=== PATIENT | female | born 1975 | race Hispanic/Latino ===

== ENCOUNTER 2018-09-29 06:59 | Inpatient (IN) | payer OTHER ==
[2018-09-29] MEDS ORDERED: DUONEB *Not for PRN Use IH ONE ×2 (07:12→09:06)
[2018-09-29] MEDS ORDERED: SOLU-Medrol IV ONE (07:13)
[2018-09-29] MEDS ORDERED: MAGNESIUM SULFATE 2GM/50ML 2 GM/50 ML BAG IV ONE (07:13)
[2018-09-29 07:29] LABS: Basophils % (Auto) 0.4 % (0.0-1.8); Eosinophils # (Auto) 0.6 K/mm3 (0.0-0.4); Eosinophils % (Auto) 4.7 % (0.0-4.3); Hematocrit 36.6 % (30.3-42.9); Hemoglobin 12.5 gm/dl (10.1-14.3); Lymphocytes # (Auto) 1.8 K/mm3 (1.2-5.4); Lymphocytes % (Auto) 14.2 % (13.4-35.0); Mean Corpuscular HGB Conc 34 % (30-34); Mean Corpuscular Volume 89 fl (79-97); Monocytes # (Auto) 0.8 K/mm3 (0.0-0.8); Monocytes % (Auto) 6.5 % (0.0-7.3); Platelet Count 257 K/mm3 (140-440); Red Blood Count 4.13 M/mm3 (3.65-5.03)
[2018-09-29 07:40] LABS: INR 1.04 (0.87-1.13)
[2018-09-29 07:41] LABS: Partial Thromboplastin Time 31.5 Sec. (24.2-36.6)
--- NOTE | 2018-09-29 07:47 | XRay Report ---
CHEST 1 VIEW INDICATION: ruel. COMPARISON: None FINDINGS: Support devices: None. Heart: Within normal limits. Lungs/Pleura: No acute air space or interstitial disease. Additional findings: None. IMPRESSION: 1. No acute findings. Signer Name: Preston Lucas MD Signed: 09/29/2018 7:43 AM Workstation Name: [id number]
[2018-09-29 07:49] LABS: BUN/Creatinine Ratio 23; Blood Urea Nitrogen 9 mg/dL (7-17); Calcium 8.6 mg/dL (8.4-10.2); Hemolysis Index 8
[2018-09-29 07:52] LABS: Alanine Aminotransferase 11 units/L (7-56); Albumin 3.6 g/dL (3.9-5)
[2018-09-29 07:53] LABS: Bilirubin,Direct < 0.2 mg/dL (0-0.2); Creatine Kinase MB < 1.0 ng/mL (0.0-4.0)
[2018-09-29] MEDS ORDERED: K-DUR PO ONE (08:40)
[2018-09-29] MEDS ORDERED: MORPHINE IV ONE (09:32)
[2018-09-29] MEDS ORDERED: ZOFRAN IV ONE (09:32)
--- NOTE | 2018-09-29 09:34 | Emergency Department Report ---
ED Shortness of Breath HPI - General Chief Complaint: Dyspnea/Respdistress Stated Complaint: SERVANDO Time Seen by Provider: 09/29/18 07:06 Source: patient, EMS Mode of arrival: Stretcher Limitations: No Limitations - History of Present Illness Initial Comments: 43-year-old female nicotine dependence still smoking with COPD. She was transported by EMS and did not require BiPAP. They could not establish an IV so they did not give her Solu-Medrol or magnesium. Patient states that she has been coughing for the last few days. She has experienced chest pain along with her wheezing. She describes it as tightness and concur with her wheezing. Does not radiate. She denies history of coronary artery disease. She has had prior admissions for COPD exacerbation but no intubations. MD Complaint: shortness of breath ((wheezing and Prevacid) -: days(s) Radiation: other (none) Severity: mild, moderate Quality: other (tightness associated with wheezing) Consistency: intermittent Improves With: nothing Worsens With: nothing Known History Of: COPD Context: other (persistent smoking) Associated Symptoms: chest pain - Related Data Allergies Allergy/AdvReac Type Severity Reaction Status Date / Time No Known Allergies Allergy Verified 09/29/18 07:25 ED Review of Systems ROS: Stated complaint: SERVANDO Other details as noted in HPI Constitutional: denies: chills, fever Eyes: denies: eye pain, eye discharge, vision change ENT: denies: ear pain, throat pain Respiratory: cough (nonproductive), shortness of breath, wheezing Cardiovascular: denies: chest pain, palpitations Endocrine: no symptoms reported Gastrointestinal: denies: abdominal pain, nausea, diarrhea Genitourinary: denies: urgency, dysuria, discharge Musculoskeletal: denies: back pain, joint swelling, arthralgia Skin: denies: rash, lesions Neurological: denies: headache, weakness, paresthesias Psychiatric: denies: anxiety, depression Hematological/Lymphatic: denies: easy bleeding, easy bruising ED Past Medical Hx - Past Medical History Previous Medical History?: Yes Hx CVA: Yes Hx Seizures: Yes Hx Asthma: Yes - Surgical History Past Surgical History?: No - Social History Smoking Status: Former Smoker Substance Use Type: None Other Social History: No recent significant travel ED Physical Exam - General Limitations: No Limitations General appearance: alert, in no apparent distress - Head Head exam: Present: atraumatic, normocephalic - Eye Eye exam: Present: normal appearance. Absent: scleral icterus - ENT ENT exam: Present: mucous membranes moist - Neck Neck exam: Present: normal inspection. Absent: tenderness, meningismus - Respiratory Respiratory exam: Present: wheezes, other (increased work of breathing). Absent: normal lung sounds bilaterally, respiratory distress - Cardiovascular Cardiovascular Exam: Present: regular rate, normal rhythm. Absent: systolic murmur, diastolic murmur, rubs, gallop - GI/Abdominal GI/Abdominal exam: Present: soft, normal bowel sounds. Absent: distended, tenderness, guarding, rebound, rigid - Extremities Exam Extremities exam: Present: normal inspection - Back Exam Back exam: Present: normal inspection - Neurological Exam Neurological exam: Present: alert, oriented X3, CN II-XII intact. Absent: motor sensory deficit - Psychiatric Psychiatric exam: Present: normal affect, normal mood - Skin Skin exam: Present: warm, dry, intact, normal color. Absent: rash ED Course Vital Signs 09/29/18 09/29/18 09/29/18 07:20 07:25 07:40 Temperature 98.6 F Pulse Rate 121 H Pulse Rate [ 110 H Bilateral] Respiratory 20 20 Rate Respiratory 16 Rate [Bilateral ] Blood Pressure 124/84 Blood Pressure [Left] O2 Sat by Pulse 97 97 Oximetry 09/29/18 09/29/18 08:34 09:20 Temperature Pulse Rate 111 H Pulse Rate [ 108 H Bilateral] Respiratory 22 Rate Respiratory 18 Rate [Bilateral ] Blood Pressure Blood Pressure 124/80 [Left] O2 Sat by Pulse 95 Oximetry - Reevaluation(s) Reevaluation #1: Patient complained periodically of chest pain to the nurse. On my exam she did not refer chest pain but she did have persistent wheezing. Her chest pain workup is expanded. She has a heart score of 1 were 0. She will be given aspirin. She will be admitted for further treatment of her COPD exacerbation and chest pain. 09/29/18 09:33 ED Medical Decision Making - Lab Data Result diagrams: 09/29/18 07:18 09/29/18 01:32 Laboratory Results - last 24 hr 09/29/18 09/29/18 09/29/18 01:32 07:18 07:18 WBC 12.8 H RBC 4.13 Hgb 12.5 Hct 36.6 MCV 89 MCH 30 MCHC 34 RDW 14.0 Plt Count 257 Lymph % (Auto) 14.2 [place] % (Auto) 6.5 Eos % (Auto) 4.7 H Baso % (Auto) 0.4 Lymph # 1.8 [place] # 0.8 Eos # 0.6 H Baso # 0.0 Seg Neutrophils % 74.2 H Seg Neutrophils # 9.5 H PT 13.3 INR 1.04 APTT 31.5 Sodium 138 Potassium 3.0 L Chloride 102.9 Carbon Dioxide 24 Anion Gap 14 BUN 9 Creatinine 0.4 L Estimated GFR > 60 BUN/Creatinine Ratio 23 Glucose 131 H Calcium 8.6 Total Bilirubin Direct Bilirubin Indirect Bilirubin AST ALT Alkaline Phosphatase Total Creatine Kinase CK-MB (CK-2) CK-MB (CK-2) Rel Index Troponin T NT-Pro-B Natriuret Pep Total Protein Albumin Albumin/Globulin Ratio 09/29/18 07:18 WBC RBC Hgb Hct MCV MCH MCHC RDW Plt Count Lymph % (Auto) [place] % (Auto) Eos % (Auto) Baso % (Auto) Lymph # [place] # Eos # Baso # Seg Neutrophils % Seg Neutrophils # PT INR APTT Sodium Potassium Chloride Carbon Dioxide Anion Gap BUN Creatinine Estimated GFR BUN/Creatinine Ratio Glucose Calcium Total Bilirubin 0.40 Direct Bilirubin < 0.2 Indirect Bilirubin 0.2 AST 14 ALT 11 Alkaline Phosphatase 54 Total Creatine Kinase 31 CK-MB (CK-2) < 1.0 CK-MB (CK-2) Rel Index 3.2 Troponin T < 0.010 NT-Pro-B Natriuret Pep 81.79 Total Protein 6.6 Albumin 3.6 L Albumin/Globulin Ratio 1.2 - EKG Data EKG shows normal: sinus rhythm, axis, intervals, QRS complexes, ST-T waves Rate: normal - EKG Data Interpretation: nonspecific ST-T wave areli - Radiology Data Radiology results: report reviewed, image reviewed (no acute process) Critical care attestation.: If time is entered above; I have spent that time in minutes in the direct care of this critically ill patient, excluding procedure time. ED Disposition Clinical Impression: COPD exacerbation, Hypokalemia Chest pain Qualifiers: Chest pain type: unspecified Qualified Code(s): R07.9 - Chest pain, unspecified Disposition: OP ADMIT IP TO THIS HOSP Is pt being admited?: Yes Does the pt Need Aspirin: Yes Condition: Stable Instructions: Chronic Obstructive Pulmonary Disease (ED), Chest Pain (ED) Time of Disposition: 09:35
[2018-09-29] MEDS: ASPIRIN PO SCH (09:47)
--- NOTE | 2018-09-29 10:56 | History and Physical Report ---
History of Present Illness Date of examination: 09/29/18 Date of admission: 09/29/18 09:36 Chief complaint: shortness of breath History of present illness: Patient is a 43-year-old female with past medical history of asthma since childhood, remote history of tobacco use she quit 2 months ago. Also associated history of SLE and seizure disorder. Who presents to the hospital complaining of shortness of breath that has been ongoing for the last few days. The patient reports that he started initially with cough and nonproductive and proceeded to tightness in her chest which causes with wheezing. She denies any radiation of the chest discomfort which resulted 3/10 in intensity. She states that her shortness of breath got rather worse prompted her call To call EMS. She denies any prior history of intubations but she's been admitted to the hospital before for asthma-induced condition. Past History Past Medical History: seizures, other (sle) Past Surgical History: No surgical history Social history: smoking (quit 2 months ago) Family history: no significant family history Medications and Allergies Allergies Allergy/AdvReac Type Severity Reaction Status Date / Time acetaminophen [From Vicodin] Allergy Unknown Verified 09/29/18 09:49 aspirin Allergy Hives Verified 09/29/18 09:49 codeine Allergy Unknown Verified 09/29/18 09:49 hydrocodone [From Vicodin] Allergy Unknown Verified 09/29/18 09:49 latex Allergy Unknown Verified 09/29/18 09:49 Penicillins Allergy Unknown Verified 09/29/18 09:49 Active Meds: Active Medications Aspirin (Aspirin) 325 mg PO QDAY TARI Last Admin: 09/29/18 09:47 Dose: Not Given Documented by: Review of Systems All systems: negative Cardiovascular: chest pain, shortness of breath Respiratory: cough, shortness of breath, dyspnea on exertion, respiratory infections Exam - Physical Exam Narrative exam: VITAL SIGNS: Reviewed. GENERAL: The patient appears normally developed, Vital signs as documented. HEAD: No signs of head trauma. EYES: Pupils are equal. Extraocular motions intact. EARS: Hearing grossly intact. MOUTH: Oropharynx is normal. NECK: No adenopathy, no JVD. CHEST: Chest with wheezing sounds bilaterally. No wheezes, rales, or rhonchi. CARDIAC: Regular rate and rhythm. S1 and S2, without murmurs, gallops, or rub s. VASCULAR: No Edema. Peripheral pulses normal and equal in all extremities. ABDOMEN: Soft, non tender and non distended. No rebound or guarding, and no masses palpated. Bowel Sounds normal. MUSCULOSKELETAL: Good range of motion of all major joints. Extremities without clubbing, cyanosis or edema. NEUROLOGIC EXAM: Alert and oriented x 3 No focal sensory or strength deficits. Speech normal. Follows commands. PSYCHIATRIC: Mood normal. SKIN: detail exam as documented in skin assessment - Constitutional Vitals: Temp Pulse Resp BP Pulse Ox 98.8 F 106 H 20 121/69 95 09/29/18 10:31 09/29/18 10:31 09/29/18 10:31 09/29/18 10:31 09/29/18 10:31 Results - Labs CBC & Chem 7: 09/29/18 07:18 09/29/18 01:32 Labs: Laboratory Last Values WBC 12.8 K/mm3 (4.5-11.0) H 09/29/18 07:18 RBC 4.13 M/mm3 (3.65-5.03) 09/29/18 07:18 Hgb 12.5 gm/dl (10.1-14.3) 09/29/18 07:18 Hct 36.6 % (30.3-42.9) 09/29/18 07:18 MCV 89 fl (79-97) 09/29/18 07:18 MCH 30 pg (28-32) 09/29/18 07:18 MCHC 34 % (30-34) 09/29/18 07:18 RDW 14.0 % (13.2-15.2) 09/29/18 07:18 Plt Count 257 K/mm3 (140-440) 09/29/18 07:18 Lymph % (Auto) 14.2 % (13.4-35.0) 09/29/18 07:18 [place] % (Auto) 6.5 % (0.0-7.3) 09/29/18 07:18 Eos % (Auto) 4.7 % (0.0-4.3) H 09/29/18 07:18 Baso % (Auto) 0.4 % (0.0-1.8) 09/29/18 07:18 Lymph # 1.8 K/mm3 (1.2-5.4) 09/29/18 07:18 [place] # 0.8 K/mm3 (0.0-0.8) 09/29/18 07:18 Eos # 0.6 K/mm3 (0.0-0.4) H 09/29/18 07:18 Baso # 0.0 K/mm3 (0.0-0.1) 09/29/18 07:18 Seg Neutrophils % 74.2 % (40.0-70.0) H 09/29/18 07:18 Seg Neutrophils # 9.5 K/mm3 (1.8-7.7) H 09/29/18 07:18 PT 13.3 Sec. (12.2-14.9) 09/29/18 07:18 INR 1.04 (0.87-1.13) 09/29/18 07:18 APTT 31.5 Sec. (24.2-36.6) 09/29/18 07:18 199.49 ng/mlDDU (0-234) 09/29/18 07:20 Sodium 138 mmol/L (137-145) 09/29/18 01:32 Potassium 3.0 mmol/L (3.6-5.0) L 09/29/18 01:32 Chloride 102.9 mmol/L (98-107) 09/29/18 01:32 Carbon Dioxide 24 mmol/L (22-30) 09/29/18 01:32 14 mmol/L 09/29/18 01:32 BUN 9 mg/dL (7-17) 09/29/18 01:32 0.4 mg/dL (0.7-1.2) L 09/29/18 01:32 Estimated GFR > 60 ml/min 09/29/18 01:32 23 % 09/29/18 01:32 Glucose 131 mg/dL (65-100) H 09/29/18 01:32 Calcium 8.6 mg/dL (8.4-10.2) 09/29/18 01:32 0.40 mg/dL (0.1-1.2) 09/29/18 07:18 < 0.2 mg/dL (0-0.2) 09/29/18 07:18 0.2 mg/dL 09/29/18 07:18 AST 14 units/L (5-40) 08/11/19 07:18 ALT 11 units/L (7-56) 09/29/18 07:18 54 units/L (35-129) 09/29/18 07:18 31 units/L (30-135) 09/29/18 07:18 CK-MB (CK-2) < 1.0 ng/mL (0.0-4.0) 09/29/18 07:18 CK-MB (CK-2) Rel Index 3.2 (0-4) 09/29/18 07:18 < 0.010 ng/mL (0.00-0.029) 09/29/18 09:35 NT-Pro-B Natriuret Pep 81.79 pg/mL (0-450) 09/29/18 07:18 6.6 g/dL (6.3-8.2) 09/29/18 07:18 3.6 g/dL (3.9-5) L 09/29/18 07:18 1.2 % 09/29/18 07:18 Assessment and Plan Assessment and plan: Patient is a 43-year-old female with past medical history of asthma since childhood, remote history of tobacco use she quit 2 months ago. Also associated history of SLE and seizure disorder. Who presents to the hospital complaining of shortness of breath that has been ongoing for the last few days. The patient reports that he started initially with cough and nonproductive and proceeded to tightness in her chest which causes with wheezing. She denies any radiation of the chest discomfort which resulted 3/10 in intensity. She states that her shortness of breath got rather worse prompted her call To call EMS. She denies any prior history of intubations but she's been admitted to the hospital before for asthma-induced condition. CXR: No acute pathology Acute Respiratory failure secondary to Asthma Asthma exacerbation Tobacco use disorder seizure disorder SLE Hypokalemia PLAN Admit to medicine steroids, Oxygen and wean as tolerated Abx Replace K Seizure precaution Nebs Obtain home med list for reconciliation, discussed with the nurse DVT/GI Prophylaxis Advance Directives: Yes Plan of care discussed with patient/family: Yes
[2018-09-29] MEDS ORDERED: SODIUM CHLORIDE FLUSH SYRINGE 10 ML IV PRN (11:06)
[2018-09-29] MEDS ORDERED: PROVENTIL IH PRN (11:06)
[2018-09-29] MEDS ORDERED: ZOFRAN IV PRN (11:06)
[2018-09-29] MEDS: DUONEB *Not for PRN Use IH SCH ×3 (14:43→19:33)
[2018-09-29] MEDS: ZITHROMAX 500 MG in NACL 0.9% 250ML 250 ML IV SCH (15:40)
[2018-09-29] MEDS: TYLENOL PO PRN (18:09)
[2018-09-29] MEDS: SOLU-Medrol IV SCH ×2 (18:09→23:29)
[2018-09-29] MEDS: BROVANA NEBU IH SCH (19:33)
[2018-09-29] MEDS: PULMICORT IH SCH (19:33)
[2018-09-29] MEDS: SODIUM CHLORIDE FLUSH SYRINGE 10 ML IV SCH (23:29)
[2018-09-30] MEDS: DUONEB *Not for PRN Use IH SCH ×4 (03:18→20:45)
[2018-09-30 05:17] LABS: Hematocrit 36.6 % (30.3-42.9); Hemoglobin 12.6 gm/dl (10.1-14.3); Mean Corpuscular HGB Conc 35 % (30-34); Mean Corpuscular Volume 89 fl (79-97); Platelet Count 303 K/mm3 (140-440); Red Blood Count 4.13 M/mm3 (3.65-5.03)
[2018-09-30 05:34] LABS: BUN/Creatinine Ratio 20; Blood Urea Nitrogen 8 mg/dL (7-17); Calcium 9.1 mg/dL (8.4-10.2); Hemolysis Index 4
[2018-09-30 07:15] LABS: Basophils % (Manual) 0 % (0.0-1.8); Eosinophils % (Manual) 0 % (0.0-4.3); Platelet Estimate Consistent w Auto; RBC Morphology Normal; Total Cells Counted 100
[2018-09-30] MEDS: BROVANA NEBU IH SCH ×2 (07:51→20:45)
[2018-09-30] MEDS: PULMICORT IH SCH ×2 (07:51→20:45)
[2018-09-30] MEDS: SOLU-Medrol IV SCH ×2 (08:20→15:53)
[2018-09-30] MEDS: ASPIRIN PO SCH (09:02)
[2018-09-30] MEDS: SODIUM CHLORIDE FLUSH SYRINGE 10 ML IV SCH ×2 (09:03→22:57)
[2018-09-30] MEDS: KEPPRA PO SCH ×2 (12:33→22:57)
[2018-09-30] MEDS: ZITHROMAX 500 MG in NACL 0.9% 250ML 250 ML IV SCH (13:15)
[2018-09-30] MEDS ORDERED: NACL 0.9% 1000 ML 1,000 ML IV ONE (14:12)
--- NOTE | 2018-09-30 16:58 | Progress Note ---
Assessment and Plan Assessment and plan: Patient is a 43-year-old female with past medical history of asthma since childhood, remote history of tobacco use she quit 2 months ago. Also associated history of SLE and seizure disorder. Who presents to the hospital complaining of shortness of breath that has been ongoing for the last few days. The patient reports that he started initially with cough and nonproductive and proceeded to tightness in her chest which causes with wheezing. She denies any radiation of the chest discomfort which resulted 3/10 in intensity. She states that her shortness of breath got rather worse prompted her call To call EMS. She denies any prior history of intubations but she's been admitted to the hospital before for asthma-induced condition. CXR: No acute pathology Acute Respiratory failure secondary to Asthma Asthma exacerbation Sinus tachycardia on EKG Tobacco use disorder seizure disorder SLE Hypokalemia PLAN Supportive care Resume seizure meds Continue IV steroids. Obtain Pulmonary consult Will need outpatient work up to eval for COPD Oxygen and wean as tolerated Abx Replace K Seizure precaution Nebs DVT/GI Prophylaxis Plan discussed with patient and Nurse at bedside History Interval history: Patient seen and examined today, remains lethargic, wheezing persist. Hospitalist Physical - Physical exam Narrative exam: VITAL SIGNS: Reviewed. GENERAL: The patient appears normally developed, appears in mild distress. Vital signs as documented. HEAD: No signs of head trauma. EYES: Pupils are equal. Extraocular motions intact. EARS: Hearing grossly intact. MOUTH: Oropharynx is normal. NECK: No adenopathy, no JVD. CHEST: Chest with wheezing sounds bilaterally. No wheezes, rales, or rhonchi. CARDIAC: Regular rate and rhythm. S1 and S2, without murmurs, gallops, or rubs. VASCULAR: No Edema. Peripheral pulses normal and equal in all extremities. ABDOMEN: Soft, non tender and non distended. No rebound or guarding, and no masses palpated. Bowel Sounds normal. MUSCULOSKELETAL: Good range of motion of all major joints. Extremities without clubbing, cyanosis or edema. NEUROLOGIC EXAM: Alert and oriented x 3 No focal sensory or strength deficit s. Speech normal. Follows commands. PSYCHIATRIC: Mood normal. SKIN: detail exam as documented in skin assessment - Constitutional Vitals: Temp Pulse Resp BP Pulse Ox 98.3 F 130 H 22 116/70 95 09/30/18 12:09 09/30/18 13:41 09/30/18 13:41 09/30/18 12:09 09/30/18 12:09 Results - Labs CBC & Chem 7: 09/30/18 04:56 09/30/18 04:56 Labs: Laboratory Last Values WBC 17.5 K/mm3 (4.5-11.0) H 09/30/18 04:56 RBC 4.13 M/mm3 (3.65-5.03) 09/30/18 04:56 Hgb 12.6 gm/dl (10.1-14.3) 09/30/18 04:56 Hct 36.6 % (30.3-42.9) 09/30/18 04:56 MCV 89 fl (79-97) 09/30/18 04:56 MCH 31 pg (28-32) 09/30/18 04:56 MCHC 35 % (30-34) H 09/30/18 04:56 RDW 14.0 % (13.2-15.2) 09/30/18 04:56 Plt Count 303 K/mm3 (140-440) 09/30/18 04:56 Lymph % (Auto) 14.2 % (13.4-35.0) 09/29/18 07:18 [place] % (Auto) 6.5 % (0.0-7.3) 09/29/18 07:18 Eos % (Auto) 4.7 % (0.0-4.3) H 09/29/18 07:18 Baso % (Auto) 0.4 % (0.0-1.8) 09/29/18 07:18 Lymph # 1.8 K/mm3 (1.2-5.4) 09/29/18 07:18 [place] # 0.8 K/mm3 (0.0-0.8) 09/29/18 07:18 Eos # 0.6 K/mm3 (0.0-0.4) H 09/29/18 07:18 Baso # 0.0 K/mm3 (0.0-0.1) 09/29/18 07:18 Add Manual Diff Complete 09/30/18 04:56 Total Counted 100 09/30/18 04:56 Seg Neutrophils % Biometrics Instructor 09/30/18 04:56 Seg Neuts % (Manual) 96.0 % (40.0-70.0) H 09/30/18 04:56 0 % 09/30/18 04:56 3.0 % (13.4-35.0) L 09/30/18 04:56 Reactive Lymphs % (Man) 0 % 09/30/18 04:56 1.0 % (0.0-7.3) 09/30/18 04:56 0 % (0.0-4.3) 09/30/18 04:56 0 % (0.0-1.8) 09/30/18 04:56 0 % 09/30/18 04:56 0 % 09/30/18 04:56 0 % 09/30/18 04:56 0 % 09/30/18 04:56 Nucleated RBC % Not Reportable 09/30/18 04:56 Seg Neutrophils # 9.5 K/mm3 (1.8-7.7) H 09/29/18 07:18 Seg Neutrophils # Man 16.8 K/mm3 (1.8-7.7) H 09/30/18 04:56 Band Neutrophils # 0.0 K/mm3 09/30/18 04:56 0.5 K/mm3 (1.2-5.4) L 09/30/18 04:56 Abs React Lymphs (Man) 0.0 K/mm3 09/30/18 04:56 0.2 K/mm3 (0.0-0.8) 09/30/18 04:56 0.0 K/mm3 (0.0-0.4) 09/30/18 04:56 0.0 K/mm3 (0.0-0.1) 09/30/18 04:56 0.0 K/mm3 09/30/18 04:56 0.0 K/mm3 09/30/18 04:56 0.0 K/mm3 09/30/18 04:56 Blast Cells # 0.0 K/mm3 09/30/18 04:56 WBC Morphology Not Reportable 09/30/18 04:56 Hypersegmented Neuts Not Reportable 09/30/18 04:56 Hyposegmented Neuts Not Reportable 09/30/18 04:56 Hypogranular Neuts Not Reportable 09/30/18 04:56 Not Reportable 09/30/18 04:56 Not Reportable 09/30/18 04:56 Not Reportable 09/30/18 04:56 Not Reportable 09/30/18 04:56 Not Reportable 09/30/18 04:56 Not Reportable 09/30/18 04:56 Consistent w auto 09/30/18 04:56 Not Reportable 09/30/18 04:56 Plt Clumps, EDTA Not Reportable 09/30/18 04:56 Not Reportable 09/30/18 04:56 Not Reportable 09/30/18 04:56 Not Reportable 09/30/18 04:56 Plt Morphology Comment Not Reportable 09/30/18 04:56 RBC Morphology Normal 09/30/18 04:56 Dimorphic RBCs Not Reportable 09/30/18 04:56 Not Reportable 09/30/18 04:56 Not Reportable 09/30/18 04:56 Not Reportable 09/30/18 04:56 Not Reportable 09/30/18 04:56 Not Reportable 09/30/18 04:56 Not Reportable 09/30/18 04:56 Not Reportable 09/30/18 04:56 Not Reportable 09/30/18 04:56 Not Reportable 09/30/18 04:56 Not Reportable 09/30/18 04:56 Not Reportable 09/30/18 04:56 Not Reportable 09/30/18 04:56 Not Reportable 09/30/18 04:56 Not Reportable 09/30/18 04:56 Not Reportable 09/30/18 04:56 Not Reportable 09/30/18 04:56 Not Reportable 09/30/18 04:56 Not Reportable 09/30/18 04:56 Not Reportable 09/30/18 04:56 Acanthocytes (Spur) Not Reportable 09/30/18 04:56 Rouleaux Not Reportable 09/30/18 04:56 Not Reportable 09/30/18 04:56 Not Reportable 09/30/18 04:56 Not Reportable 09/30/18 04:56 Not Reportable 09/30/18 04:56 Hem Pathologist Commnt No 09/30/18 04:56 PT 13.3 Sec. (12.2-14.9) 09/29/18 07:18 INR 1.04 (0.87-1.13) 09/29/18 07:18 APTT 31.5 Sec. (24.2-36.6) 09/29/18 07:18 199.49 ng/mlDDU (0-234) 09/29/18 07:20 Sodium 140 mmol/L (137-145) 09/30/18 04:56 Potassium 4.3 mmol/L (3.6-5.0) D 09/30/18 04:56 Chloride 103.6 mmol/L (98-107) 09/30/18 04:56 Carbon Dioxide 25 mmol/L (22-30) 09/30/18 04:56 16 mmol/L 09/30/18 04:56 BUN 8 mg/dL (7-17) 09/30/18 04:56 0.4 mg/dL (0.7-1.2) L 09/30/18 04:56 Estimated GFR > 60 ml/min 09/30/18 04:56 20 % 09/30/18 04:56 Glucose 200 mg/dL (65-100) H 09/30/18 04:56 Calcium 9.1 mg/dL (8.4-10.2) 09/30/18 04:56 0.40 mg/dL (0.1-1.2) 09/29/18 07:18 < 0.2 mg/dL (0-0.2) 09/29/18 07:18 0.2 mg/dL 09/29/18 07:18 AST 14 units/L (5-40) 09/29/18 07:18 ALT 11 units/L (7-56) 09/29/18 07:18 54 units/L (35-129) 09/29/18 07:18 31 units/L (30-135) 09/29/18 07:18 CK-MB (CK-2) < 1.0 ng/mL (0.0-4.0) 09/29/18 07:18 CK-MB (CK-2) Rel Index 3.2 (0-4) 09/29/18 07:18 < 0.010 ng/mL (0.00-0.029) 09/29/18 09:35 NT-Pro-B Natriuret Pep 81.79 pg/mL (0-450) 09/29/18 07:18 6.6 g/dL (6.3-8.2) 09/29/18 07:18 3.6 g/dL (3.9-5) L 09/29/18 07:18 1.2 % 09/29/18 07:18 Active Medications - Current Medications Current Medications: Generic Name Dose Route Start Last Admin Trade Name Freq PRN Reason Stop Dose Admin Acetaminophen 650 mg 09/29/18 11:06 09/29/18 18:09 Tylenol PO 650 mg Q4H PRN Administration Pain MILD(1-3)/Fever >100.5/BETTS Albuterol 2.5 mg 09/29/18 11:06 Proventil IH Q4H PRN Shortness Of Breath Albuterol/Ipratropium 1 ampul 09/29/18 14:00 09/30/18 13:41 Duoneb *Not For Prn Use* IH 1 ampul Q6HRT TARI Administration Arformoterol Tartrate 15 mcg 09/29/18 20:00 09/30/18 07:51 Brovana Nebu IH 15 mcg Q12HRT TARI Administration Aspirin 325 mg 09/29/18 10:00 09/30/18 09:02 Aspirin PO Not Given QDAY TARI Budesonide 0.5 mg 09/29/18 20:00 09/30/18 07:51 Pulmicort IH 0.5 mg Q12HRT TARI Administration Azithromycin 500 mg/ Sodium 250 mls @ 250 mls/hr 09/29/18 14:00 09/30/18 13:15 Chloride IV 250 mls/hr Q24H TARI Administration Protocol Levetiracetam 1,000 mg 09/30/18 12:00 09/30/18 12:33 Keppra PO 1,000 mg BID TARI Administration Methylprednisolone Sodium Succinate 125 mg 09/29/18 16:00 09/30/18 15:53 Solu-Medrol IV 125 mg Q8H TARI Administration Ondansetron HCl 4 mg 09/29/18 11:06 Zofran IV Q8H PRN Nausea And Vomiting Sodium Chloride 10 ml 09/29/18 22:00 09/30/18 09:03 Sodium Chloride Flush Syringe 10 Ml IV 10 ml BID TARI Administration Sodium Chloride 10 ml 09/29/18 11:06 Sodium Chloride Flush Syringe 10 Ml IV PRN PRN LINE FLUSH
[2018-09-30 18:35] LABS: Benzodiazepines Screen,Urine PRESUMPTIVE NEGATIVE; Cannabinoid Screen,Urine PRESUMPTIVE NEGATIVE; Cocaine Screen,Urine PRESUMPTIVE NEGATIVE; Methadone Screen,Urine PRESUMPTIVE NEGATIVE; Opiate Screen,Urine PRESUMPTIVE NEGATIVE
[2018-09-30 18:51] LABS: Amphetamine Screen,Urine PRESUMPTIVE POSITIVE
[2018-10-01] MEDS: SOLU-Medrol IV SCH ×4 (00:50→20:30)
[2018-10-01] MEDS: DUONEB *Not for PRN Use IH SCH ×4 (02:19→19:38)
[2018-10-01 05:30] LABS: Hematocrit 35.8 % (30.3-42.9); Hemoglobin 12.1 gm/dl (10.1-14.3); Mean Corpuscular HGB Conc 34 % (30-34); Mean Corpuscular Volume 88 fl (79-97); Platelet Count 341 K/mm3 (140-440); Red Blood Count 4.05 M/mm3 (3.65-5.03); Red Cell Distribution Width 14.5 % (13.2-15.2)
[2018-10-01 05:49] LABS: BUN/Creatinine Ratio 37; Blood Urea Nitrogen 11 mg/dL (7-17); Calcium 8.9 mg/dL (8.4-10.2); Hemolysis Index 1
[2018-10-01] MEDS: BROVANA NEBU IH SCH (07:22)
[2018-10-01] MEDS: PULMICORT IH SCH ×2 (07:22→19:38)
[2018-10-01] MEDS: KEPPRA PO SCH ×2 (11:21→22:19)
[2018-10-01] MEDS: SODIUM CHLORIDE FLUSH SYRINGE 10 ML IV SCH ×2 (11:23→22:20)
--- NOTE | 2018-10-01 12:45 | Progress Note ---
Assessment and Plan Assessment and plan: Patient is a 43-year-old female with past medical history of asthma since childhood, remote history of tobacco use she quit 2 months ago. Also associated history of SLE and seizure disorder. Who presents to the hospital complaining of shortness of breath that has been ongoing for the last few days. The patient reports that he started initially with cough and nonproductive and proceeded to tightness in her chest which causes with wheezing. She denies any radiation of the chest discomfort which resulted 3/10 in intensity. She states that her shortness of breath got rather worse prompted her call To call EMS. She denies any prior history of intubations but she's been admitted to the hospital before for asthma-induced condition. CXR: No acute pathology --Acute hypoxic Respiratory failure: secondary to Asthma exacerbation Oxygen titrate to O2 sats more than 90%, bronchodilators, tapering dose of steroids IV antibiotics and supportive care --Acute exacerbation of bronchial Asthma ; nebulizers Oxygen, steroids, antibiotics, supportive care --History of Tobacco use disorder; smoking cessation advised Nicotine patch as needed --seizure disorder; seizure precautions, antiepileptic medications --History of SLE; stable --Hypokalemia; corrected --DVT prophylaxis; Lovenox Monitor closely and adjust management as needed Plan of care reviewed with the patient and her nurse Disposition possible discharge in 1-2 days if stable; History Interval history: Patient Seen and examined medical records reviewed Continues to have chest congestion and cough, productive Mild shortness of breath and wheezing Alert awake oriented Vital signs reviewed Hospitalist Physical - Constitutional Vitals: Temp Pulse Resp BP Pulse Ox 98.2 F 112 H 22 126/88 97 10/01/18 05:00 10/01/18 07:51 10/01/18 07:51 10/01/18 05:00 10/01/18 07:25 General appearance: Present: mild distress, well-nourished, obese - EENT Eyes: Present: PERRL, EOM intact - Neck Neck: Present: supple, normal ROM - Respiratory Respiratory effort: normal Respiratory: bilateral: diminished, wheezing, negative: rales, rhonchi - Cardiovascular Rhythm: regular Heart Sounds: Present: S1 & S2 - Extremities Extremities: no ischemia, No edema - Abdominal General gastrointestinal: soft, non-tender, non-distended, normal bowel sounds - Integumentary Integumentary: Present: clear, warm - Psychiatric Psychiatric: appropriate mood/affect, cooperative - Neurologic Neurologic: CNII-XII intact, moves all extremities Results - Labs CBC & Chem 7: 10/01/18 04:40 10/01/18 04:40 Labs: Laboratory Last Values WBC 20.5 K/mm3 (4.5-11.0) H 10/01/18 04:40 RBC 4.05 M/mm3 (3.65-5.03) 10/01/18 04:40 Hgb 12.1 gm/dl (10.1-14.3) 10/01/18 04:40 Hct 35.8 % (30.3-42.9) 10/01/18 04:40 MCV 88 fl (79-97) 10/01/18 04:40 MCH 30 pg (28-32) 10/01/18 04:40 MCHC 34 % (30-34) 10/01/18 04:40 RDW 14.5 % (13.2-15.2) 10/01/18 04:40 Plt Count 341 K/mm3 (140-440) 10/01/18 04:40 Lymph % (Auto) 14.2 % (13.4-35.0) 09/29/18 07:18 [place] % (Auto) 6.5 % (0.0-7.3) 09/29/18 07:18 Eos % (Auto) 4.7 % (0.0-4.3) H 09/29/18 07:18 Baso % (Auto) 0.4 % (0.0-1.8) 09/29/18 07:18 Lymph # 1.8 K/mm3 (1.2-5.4) 09/29/18 07:18 [place] # 0.8 K/mm3 (0.0-0.8) 09/29/18 07:18 Eos # 0.6 K/mm3 (0.0-0.4) H 09/29/18 07:18 Baso # 0.0 K/mm3 (0.0-0.1) 09/29/18 07:18 Add Manual Diff Complete 09/30/18 04:56 Total Counted 100 09/30/18 04:56 Seg Neutrophils % [employer] 09/30/18 04:56 Seg Neuts % (Manual) 96.0 % (40.0-70.0) H 09/30/18 04:56 0 % 09/30/18 04:56 3.0 % (13.4-35.0) L 09/30/18 04:56 Reactive Lymphs % (Man) 0 % 09/30/18 04:56 1.0 % (0.0-7.3) 09/30/18 04:56 0 % (0.0-4.3) 09/30/18 04:56 0 % (0.0-1.8) 09/30/18 04:56 0 % 09/30/18 04:56 0 % 09/30/18 04:56 0 % 09/30/18 04:56 0 % 09/30/18 04:56 Nucleated RBC % Not Reportable 09/30/18 04:56 Seg Neutrophils # 9.5 K/mm3 (1.8-7.7) H 09/29/18 07:18 Seg Neutrophils # Man 16.8 K/mm3 (1.8-7.7) H 09/30/18 04:56 Band Neutrophils # 0.0 K/mm3 09/30/18 04:56 0.5 K/mm3 (1.2-5.4) L 09/30/18 04:56 Abs React Lymphs (Man) 0.0 K/mm3 09/30/18 04:56 0.2 K/mm3 (0.0-0.8) 09/30/18 04:56 0.0 K/mm3 (0.0-0.4) 09/30/18 04:56 0.0 K/mm3 (0.0-0.1) 09/30/18 04:56 0.0 K/mm3 09/30/18 04:56 0.0 K/mm3 09/30/18 04:56 0.0 K/mm3 09/30/18 04:56 Blast Cells # 0.0 K/mm3 09/30/18 04:56 WBC Morphology Not Reportable 09/30/18 04:56 Hypersegmented Neuts Not Reportable 09/30/18 04:56 Hyposegmented Neuts Not Reportable 09/30/18 04:56 Hypogranular Neuts Not Reportable 09/30/18 04:56 Not Reportable 09/30/18 04:56 Not Reportable 09/30/18 04:56 Not Reportable 09/30/18 04:56 Not Reportable 09/30/18 04:56 Not Reportable 09/30/18 04:56 Not Reportable 09/30/18 04:56 Consistent w auto 09/30/18 04:56 Not Reportable 09/30/18 04:56 Plt Clumps, EDTA Not Reportable 09/30/18 04:56 Not Reportable 09/30/18 04:56 Not Reportable 09/30/18 04:56 Not Reportable 09/30/18 04:56 Plt Morphology Comment Not Reportable 09/30/18 04:56 RBC Morphology Normal 09/30/18 04:56 Dimorphic RBCs Not Reportable 09/30/18 04:56 Not Reportable 09/30/18 04:56 Not Reportable 09/30/18 04:56 Not Reportable 09/30/18 04:56 Not Reportable 09/30/18 04:56 Not Reportable 09/30/18 04:56 Not Reportable 09/30/18 04:56 Not Reportable 09/30/18 04:56 Not Reportable 09/30/18 04:56 Not Reportable 09/30/18 04:56 Not Reportable 09/30/18 04:56 Not Reportable 09/30/18 04:56 Not Reportable 09/30/18 04:56 Not Reportable 09/30/18 04:56 Not Reportable 09/30/18 04:56 Not Reportable 09/30/18 04:56 Not Reportable 09/30/18 04:56 Not Reportable 09/30/18 04:56 Not Reportable 09/30/18 04:56 Not Reportable 09/30/18 04:56 Acanthocytes (Spur) Not Reportable 09/30/18 04:56 Rouleaux Not Reportable 09/30/18 04:56 Not Reportable 09/30/18 04:56 Not Reportable 09/30/18 04:56 Not Reportable 09/30/18 04:56 Not Reportable 09/30/18 04:56 Hem Pathologist Commnt No 09/30/18 04:56 PT 13.3 Sec. (12.2-14.9) 09/29/18 07:18 INR 1.04 (0.87-1.13) 09/29/18 07:18 APTT 31.5 Sec. (24.2-36.6) 09/29/18 07:18 199.49 ng/mlDDU (0-234) 09/29/18 07:20 Sodium 139 mmol/L (137-145) 10/01/18 04:40 Potassium 4.1 mmol/L (3.6-5.0) 10/01/18 04:40 Chloride 104.0 mmol/L (98-107) 10/01/18 04:40 Carbon Dioxide 24 mmol/L (22-30) 10/01/18 04:40 15 mmol/L 10/01/18 04:40 BUN 11 mg/dL (7-17) 10/01/18 04:40 0.3 mg/dL (0.7-1.2) L 10/01/18 04:40 Estimated GFR > 60 ml/min 10/01/18 04:40 37 % 10/01/18 04:40 Glucose 136 mg/dL (65-100) H 10/01/18 04:40 Calcium 8.9 mg/dL (8.4-10.2) 10/01/18 04:40 0.40 mg/dL (0.1-1.2) 09/29/18 07:18 < 0.2 mg/dL (0-0.2) 09/29/18 07:18 0.2 mg/dL 09/29/18 07:18 AST 14 units/L (5-40) 09/29/18 07:18 ALT 11 units/L (7-56) 09/29/18 07:18 54 units/L (35-129) 09/29/18 07:18 31 units/L (30-135) 09/29/18 07:18 CK-MB (CK-2) < 1.0 ng/mL (0.0-4.0) 09/29/18 07:18 CK-MB (CK-2) Rel Index 3.2 (0-4) 09/29/18 07:18 < 0.010 ng/mL (0.00-0.029) 09/29/18 09:35 NT-Pro-B Natriuret Pep 81.79 pg/mL (0-450) 09/29/18 07:18 6.6 g/dL (6.3-8.2) 09/29/18 07:18 3.6 g/dL (3.9-5) L 09/29/18 07:18 1.2 % 09/29/18 07:18 Presumptive negative 09/30/18 18:00 Presumptive negative 09/30/18 18:00 Ur Barbiturates Screen Presumptive negative 09/30/18 18:00 Ur Phencyclidine Scrn Presumptive negative 09/30/18 18:00 Ur Amphetamines Screen Presumptive positive 09/30/18 18:00 U Benzodiazepines Scrn Presumptive negative 09/30/18 18:00 Presumptive negative 09/30/18 18:00 U Marijuana (THC) Screen Presumptive negative 09/30/18 18:00 Disclamer 09/30/18 18:00 Active Medications - Current Medications Current Medications: Generic Name Dose Route Start Last Admin Trade Name Freq PRN Reason Stop Dose Admin Acetaminophen 650 mg 09/29/18 11:06 09/29/18 18:09 Tylenol PO 650 mg Q4H PRN Administration Pain MILD(1-3)/Fever >100.5/BETTS Albuterol 2.5 mg 09/29/18 11:06 Proventil IH Q4H PRN Shortness Of Breath Albuterol/Ipratropium 1 ampul 09/29/18 14:00 10/01/18 07:22 Duoneb *Not For Prn Use* IH 1 ampul Q6HRT [facility]I Administration Arformoterol Tartrate 15 mcg 09/29/18 20:00 10/01/18 07:22 Brovana Nebu IH 15 mcg Q12HRT [facility]ARI Administration Budesonide 0.5 mg 09/29/18 20:00 10/01/18 07:22 Pulmicort IH 0.5 mg Q12HRT [facility]ARI Administration Azithromycin 500 mg/ Sodium 250 mls @ 250 mls/hr 09/29/18 14:00 09/30/18 13:15 Chloride IV 250 mls/hr Q24H [facility]ARI Administration Protocol Levetiracetam 1,000 mg 09/30/18 12:00 10/01/18 11:21 Keppra PO 1,000 mg BID TARI Administration Methylprednisolone Sodium Succinate 125 mg 09/29/18 16:00 10/01/18 08:27 Solu-Medrol IV 125 mg Q8H [facility]I Administration Ondansetron HCl 4 mg 09/29/18 11:06 09/30/18 19:08 Zofran IV 4 mg Q8H PRN Administration Nausea And Vomiting Sodium Chloride 10 ml 09/29/18 22:00 10/01/18 11:23 Sodium Chloride Flush Syringe 10 Ml IV 10 ml BID TARI Administration Sodium Chloride 10 ml 09/29/18 11:06 Sodium Chloride Flush Syringe 10 Ml IV PRN PRN LINE FLUSH
--- NOTE | 2018-10-01 12:51 | Consultation ---
History of Present Illness Consult date: 10/01/18 Requesting physician: KAYLEE VILLAR Reason for consult: COPD History of present illness: 43 y/o female, moved here from [facility] 6 months ago admitted with acute respiratory failure thought secondary to asthma flare. Per chart patient takes Keppra and Prednisone daily. Per patient has been sick many times before like this. She has been feeling bad since last Sunday. has cough that is not productive of sputum. No fever. No sick contacts. Per patient she does not do drugs but her UDS is positive for amphetamines. She is currently on oxygen in bed lying flat. No other individuals are in the room. Past History Past Medical History: seizures, other (sle) Past Surgical History: No surgical history Social history: smoking (quit 2 months ago) Family history: no significant family history Medications and Allergies Allergies Allergy/AdvReac Type Severity Reaction Status Date / Time aspirin Allergy Hives Verified 09/29/18 09:49 codeine Allergy Unknown Verified 09/29/18 09:49 hydrocodone [From Vicodin] Allergy Unknown Verified 09/29/18 09:49 latex Allergy Unknown Verified 09/29/18 09:49 Penicillins Allergy Unknown Verified 09/29/18 09:49 Home Medications Medication Instructions Recorded Confirmed Last Taken Type Keppra 1,000 mg PO BID 09/30/18 09/30/18 09/29/18 History Prednisone 10 mg PO BID 09/30/18 09/30/18 09/28/18 History Active Meds: Active Medications Acetaminophen (Tylenol) 650 mg PO Q4H PRN PRN Reason: Pain MILD(1-3)/Fever >100.5/BETTS Last Admin: 09/29/18 18:09 Dose: 650 mg Documented by: Albuterol (Proventil) 2.5 mg IH Q4H PRN PRN Reason: Shortness Of Breath Albuterol/Ipratropium (Duoneb *Not For Prn Use*) 1 ampul IH Q6HRT [facility] Last Admin: 10/01/18 07:22 Dose: 1 ampul Documented by: Arformoterol Tartrate (Brovana Nebu) 15 mcg IH Q12HRT [facility] Last Admin: 10/01/18 07:22 Dose: 15 mcg Documented by: Budesonide (Pulmicort) 0.5 mg IH Q12HRT [facility] Last Admin: 10/01/18 07:22 Dose: 0.5 mg Documented by: Azithromycin 500 mg/ Sodium (Chloride) 250 mls @ 250 mls/hr IV Q24H [facility]; Protocol Last Admin: 09/30/18 13:15 Dose: 250 mls/hr Documented by: Levetiracetam (Keppra) 1,000 mg PO BID [facility] Last Admin: 10/01/18 11:21 Dose: 1,000 mg Documented by: Methylprednisolone Sodium Succinate (Solu-Medrol) 125 mg IV Q8H [facility] Last Admin: 10/01/18 08:27 Dose: 125 mg Documented by: Ondansetron HCl (Zofran) 4 mg IV Q8H PRN PRN Reason: Nausea And Vomiting Last Admin: 09/30/18 19:08 Dose: 4 mg Documented by: Sodium Chloride (Sodium Chloride Flush Syringe 10 Ml) 10 ml IV BID [facility] Last Admin: 10/01/18 11:23 Dose: 10 ml Documented by: Sodium Chloride (Sodium Chloride Flush Syringe 10 Ml) 10 ml IV PRN PRN PRN Reason: LINE FLUSH Review of Systems All systems: negative Physical Examination Vital signs: Vital Signs Temp Pulse Resp BP Pulse Ox 98.6 F 121 H 20 124/84 97 09/29/18 07:20 09/29/18 07:20 09/29/18 07:20 09/29/18 07:20 09/29/18 07:20 Results - Laboratory Findings CBC and BMP: 10/01/18 04:40 10/01/18 04:40 PT/INR, D-dimer PT 13.3 Sec. (12.2-14.9) 09/29/18 07:18 INR 1.04 (0.87-1.13) 09/29/18 07:18 199.49 ng/mlDDU (0-234) 09/29/18 07:20 Abnormal lab findings: Abnormal Labs 09/29/18 09/29/18 09/29/18 01:32 07:18 07:18 WBC 12.8 H MCHC Eos % (Auto) 4.7 H Eos # 0.6 H Seg Neutrophils % 74.2 H Seg Neuts % (Manual) Lymphocytes % (Manual) Seg Neutrophils # 9.5 H Seg Neutrophils # Man Lymphocytes # (Manual) Potassium 3.0 L Creatinine 0.4 L Glucose 131 H Albumin 3.6 L 09/30/18 09/30/18 10/01/18 04:56 04:56 04:40 WBC 17.5 H 20.5 H MCHC 35 H Eos % (Auto) Eos # Seg Neutrophils % Seg Neuts % (Manual) 96.0 H Lymphocytes % (Manual) 3.0 L Seg Neutrophils # Seg Neutrophils # Man 16.8 H Lymphocytes # (Manual) 0.5 L Potassium Creatinine 0.4 L Glucose 200 H Albumin 10/01/18 04:40 WBC MCHC Eos % (Auto) Eos # Seg Neutrophils % Seg Neuts % (Manual) Lymphocytes % (Manual) Seg Neutrophils # Seg Neutrophils # Man Lymphocytes # (Manual) Potassium Creatinine 0.3 L Glucose 136 H Albumin - Diagnostic Findings Chest x-ray: image reviewed (No evidence of acute lung disease.) Assessment and Plan 43 y/o female with acute respiratory failure thought secondary to asthma exacer bation and amphetamine use that does not appear to be prescription. 1. Will change steroids to 60q6 2. Will add BID pulmicort therapy. 3. Agree with scheduled duonebs 4. Per patient was on singulair. Will restart but currently does not have funding. Not sure if she will be able to afford at discharge 5. Needs couseling on drug abuse as this is likely worsening her underlying lung disease. Especially if she is inhaling or smoking this .
[2018-10-01] MEDS: ZITHROMAX 500 MG in NACL 0.9% 250ML 250 ML IV SCH (15:04)
[2018-10-01] MEDS: TYLENOL PO PRN (16:17)
[2018-10-01] MEDS ORDERED: LASIX IV ONE (18:00)
[2018-10-01] MEDS: CLARITIN-D 24HR PO SCH (18:09)
[2018-10-01] MEDS: SINGULAIR PO SCH (22:20)
[2018-10-02] MEDS: SOLU-Medrol IV SCH ×4 (01:02→22:24)
[2018-10-02] MEDS: DUONEB *Not for PRN Use IH SCH ×4 (01:24→20:03)
[2018-10-02] MEDS: PULMICORT IH SCH ×2 (08:27→20:03)
--- NOTE | 2018-10-02 08:37 | Progress Note ---
Assessment and Plan Assessment and plan: Patient is a 43-year-old female with past medical history of asthma since childhood, remote history of tobacco use she quit 2 months ago. Also associated history of SLE and seizure disorder. Who presents to the hospital complaining of shortness of breath that has been ongoing for the last few days. The patient reports that he started initially with cough and nonproductive and proceeded to tightness in her chest which causes with wheezing. She denies any radiation of the chest discomfort which resulted 3/10 in intensity. She states that her shortness of breath got rather worse prompted her call To call EMS. She denies any prior history of intubations but she's been admitted to the hospital before for asthma-induced condition. CXR: No acute pathology --Acute exacerbation of bronchial Asthma ; nebulizers Oxygen, steroids, antibiotics, supportive care --Acute hypoxic Respiratory failure: secondary to Asthma exacerbation Oxygen titrate to O2 sats more than 90%, bronchodilators, tapering dose of steroids IV antibiotics and supportive care --History of Tobacco use disorder; smoking cessation advised Nicotine patch as needed --seizure disorder; seizure precautions, antiepileptic medications --History of SLE; stable --Hypokalemia; corrected --Substance abuse; patient advised to quit recreational drug use --Ongoing tobacco use; smoking cessation and preventive counseling done --DVT prophylaxis; Lovenox Monitor closely and adjust management as needed Plan of care reviewed with the patient and her nurse Disposition possible discharge in 1-2 days if stable; History Interval history: Patient seen and examined medical records reviewed Patient continues to have cough and congestion Mild shortness of breath, on nebulizers slightly steroids IV antibiotics Alert awake oriented 3 Vital signs noted Hospitalist Physical - Constitutional Vitals: Temp Pulse Resp BP Pulse Ox 97.7 F 92 H 24 131/82 96 10/02/18 04:43 10/02/18 04:43 10/02/18 04:43 10/02/18 04:43 10/02/18 08:27 General appearance: Present: mild distress, well-nourished, obese - EENT Eyes: Present: PERRL, EOM intact - Neck Neck: Present: supple, normal ROM - Respiratory Respiratory effort: normal Respiratory: bilateral: diminished, wheezing, negative: rales, rhonchi - Cardiovascular Rhythm: regular Heart Sounds: Present: S1 & S2 - Extremities Extremities: no ischemia, No edema - Abdominal General gastrointestinal: soft, non-tender, non-distended, normal bowel sounds - Integumentary Integumentary: Present: clear, warm - Psychiatric Psychiatric: appropriate mood/affect, cooperative - Neurologic Neurologic: CNII-XII intact, moves all extremities Results - Labs CBC & Chem 7: 10/01/18 04:40 10/01/18 04:40 Labs: Laboratory Last Values WBC 20.5 K/mm3 (4.5-11.0) H 10/01/18 04:40 RBC 4.05 M/mm3 (3.65-5.03) 10/01/18 04:40 Hgb 12.1 gm/dl (10.1-14.3) 10/01/18 04:40 Hct 35.8 % (30.3-42.9) 10/01/18 04:40 MCV 88 fl (79-97) 10/01/18 04:40 MCH 30 pg (28-32) 10/01/18 04:40 MCHC 34 % (30-34) 10/01/18 04:40 RDW 14.5 % (13.2-15.2) 10/01/18 04:40 Plt Count 341 K/mm3 (140-440) 10/01/18 04:40 Lymph % (Auto) 14.2 % (13.4-35.0) 09/29/18 07:18 [place] % (Auto) 6.5 % (0.0-7.3) 09/29/18 07:18 Eos % (Auto) 4.7 % (0.0-4.3) H 09/29/18 07:18 Baso % (Auto) 0.4 % (0.0-1.8) 09/29/18 07:18 Lymph # 1.8 K/mm3 (1.2-5.4) 09/29/18 07:18 [place] # 0.8 K/mm3 (0.0-0.8) 09/29/18 07:18 Eos # 0.6 K/mm3 (0.0-0.4) H 09/29/18 07:18 Baso # 0.0 K/mm3 (0.0-0.1) 09/29/18 07:18 Add Manual Diff Complete 09/30/18 04:56 Total Counted 100 09/30/18 04:56 Seg Neutrophils % Real Estate Officer 09/30/18 04:56 Seg Neuts % (Manual) 96.0 % (40.0-70.0) H 09/30/18 04:56 0 % 09/30/18 04:56 3.0 % (13.4-35.0) L 09/30/18 04:56 Reactive Lymphs % (Man) 0 % 09/30/18 04:56 1.0 % (0.0-7.3) 09/30/18 04:56 0 % (0.0-4.3) 09/30/18 04:56 0 % (0.0-1.8) 09/30/18 04:56 0 % 09/30/18 04:56 0 % 09/30/18 04:56 0 % 09/30/18 04:56 0 % 09/30/18 04:56 Nucleated RBC % Not Reportable 09/30/18 04:56 Seg Neutrophils # 9.5 K/mm3 (1.8-7.7) H 09/29/18 07:18 Seg Neutrophils # Man 16.8 K/mm3 (1.8-7.7) H 09/30/18 04:56 Band Neutrophils # 0.0 K/mm3 09/30/18 04:56 0.5 K/mm3 (1.2-5.4) L 09/30/18 04:56 Abs React Lymphs (Man) 0.0 K/mm3 09/30/18 04:56 0.2 K/mm3 (0.0-0.8) 09/30/18 04:56 0.0 K/mm3 (0.0-0.4) 09/30/18 04:56 0.0 K/mm3 (0.0-0.1) 09/30/18 04:56 0.0 K/mm3 09/30/18 04:56 0.0 K/mm3 09/30/18 04:56 0.0 K/mm3 09/30/18 04:56 Blast Cells # 0.0 K/mm3 09/30/18 04:56 WBC Morphology Not Reportable 09/30/18 04:56 Hypersegmented Neuts Not Reportable 09/30/18 04:56 Hyposegmented Neuts Not Reportable 09/30/18 04:56 Hypogranular Neuts Not Reportable 09/30/18 04:56 Not Reportable 09/30/18 04:56 Not Reportable 09/30/18 04:56 Not Reportable 09/30/18 04:56 Not Reportable 09/30/18 04:56 Not Reportable 09/30/18 04:56 Not Reportable 09/30/18 04:56 Consistent w auto 09/30/18 04:56 Not Reportable 09/30/18 04:56 Plt Clumps, EDTA Not Reportable 09/30/18 04:56 Not Reportable 09/30/18 04:56 Not Reportable 09/30/18 04:56 Not Reportable 09/30/18 04:56 Plt Morphology Comment Not Reportable 09/30/18 04:56 RBC Morphology Normal 09/30/18 04:56 Dimorphic RBCs Not Reportable 09/30/18 04:56 Not Reportable 09/30/18 04:56 Not Reportable 09/30/18 04:56 Not Reportable 09/30/18 04:56 Not Reportable 09/30/18 04:56 Not Reportable 09/30/18 04:56 Not Reportable 09/30/18 04:56 Not Reportable 09/30/18 04:56 Not Reportable 09/30/18 04:56 Not Reportable 09/30/18 04:56 Not Reportable 09/30/18 04:56 Not Reportable 09/30/18 04:56 Not Reportable 09/30/18 04:56 Not Reportable 09/30/18 04:56 Not Reportable 09/30/18 04:56 Not Reportable 09/30/18 04:56 Not Reportable 09/30/18 04:56 Not Reportable 09/30/18 04:56 Not Reportable 09/30/18 04:56 Not Reportable 09/30/18 04:56 Acanthocytes (Spur) Not Reportable 09/30/18 04:56 Rouleaux Not Reportable 09/30/18 04:56 Not Reportable 09/30/18 04:56 Not Reportable 09/30/18 04:56 Not Reportable 09/30/18 04:56 Not Reportable 09/30/18 04:56 Hem Pathologist Commnt No 09/30/18 04:56 PT 13.3 Sec. (12.2-14.9) 09/29/18 07:18 INR 1.04 (0.87-1.13) 09/29/18 07:18 APTT 31.5 Sec. (24.2-36.6) 09/29/18 07:18 199.49 ng/mlDDU (0-234) 09/29/18 07:20 Sodium 139 mmol/L (137-145) 10/01/18 04:40 Potassium 4.1 mmol/L (3.6-5.0) 10/01/18 04:40 Chloride 104.0 mmol/L (98-107) 10/01/18 04:40 Carbon Dioxide 24 mmol/L (22-30) 10/01/18 04:40 15 mmol/L 10/01/18 04:40 BUN 11 mg/dL (7-17) 10/01/18 04:40 0.3 mg/dL (0.7-1.2) L 10/01/18 04:40 Estimated GFR > 60 ml/min 10/01/18 04:40 37 % 10/01/18 04:40 Glucose 136 mg/dL (65-100) H 10/01/18 04:40 Calcium 8.9 mg/dL (8.4-10.2) 10/01/18 04:40 0.40 mg/dL (0.1-1.2) 09/29/18 07:18 < 0.2 mg/dL (0-0.2) 09/29/18 07:18 0.2 mg/dL 09/29/18 07:18 AST 14 units/L (5-40) 09/29/18 07:18 ALT 11 units/L (7-56) 09/29/18 07:18 54 units/L (35-129) 09/29/18 07:18 31 units/L (30-135) 09/29/18 07:18 CK-MB (CK-2) < 1.0 ng/mL (0.0-4.0) 09/29/18 07:18 CK-MB (CK-2) Rel Index 3.2 (0-4) 09/29/18 07:18 < 0.010 ng/mL (0.00-0.029) 09/29/18 09:35 NT-Pro-B Natriuret Pep 81.79 pg/mL (0-450) 09/29/18 07:18 6.6 g/dL (6.3-8.2) 09/29/18 07:18 3.6 g/dL (3.9-5) L 09/29/18 07:18 1.2 % 09/29/18 07:18 Presumptive negative 09/30/18 18:00 Presumptive negative 09/30/18 18:00 Ur Barbiturates Screen Presumptive negative 09/30/18 18:00 Ur Phencyclidine Scrn Presumptive negative 09/30/18 18:00 Ur Amphetamines Screen Presumptive positive 09/30/18 18:00 U Benzodiazepines Scrn Presumptive negative 09/30/18 18:00 Presumptive negative 09/30/18 18:00 U Marijuana (THC) Screen Presumptive negative 09/30/18 18:00 Disclamer 09/30/18 18:00 Active Medications - Current Medications Current Medications: Generic Name Dose Route Start Last Admin Trade Name Freq PRN Reason Stop Dose Admin Acetaminophen 650 mg 09/29/18 11:06 10/01/18 16:17 Tylenol PO 650 mg Q4H PRN Administration Pain MILD(1-3)/Fever >100.5/BETTS Albuterol 2.5 mg 09/29/18 11:06 Proventil IH Q4H PRN Shortness Of Breath Albuterol/Ipratropium 1 ampul 09/29/18 14:00 10/02/18 08:27 Duoneb *Not For Prn Use* IH 1 ampul Q6HRT [facility]I Administration Budesonide 0.5 mg 09/29/18 20:00 10/02/18 08:27 Pulmicort IH 0.5 mg Q12HRT [facility]I Administration Guaifenesin 10 ml 10/01/18 17:42 Guaifenesin Dm Syrup PO Q4H PRN Cough Azithromycin 500 mg/ Sodium 250 mls @ 250 mls/hr 09/29/18 14:00 10/01/18 15:04 Chloride IV 10/03/18 14:59 250 mls/hr Q24H [facility]I Administration Protocol Levetiracetam 1,000 mg 09/30/18 12:00 10/01/18 22:19 Keppra PO 1,000 mg BID [facility] Administration Loratadine/Pseudoephedrine Sulfate 1 each 10/01/18 18:00 08/13/19 18:09 Claritin-D 24hr PO 1 each Q24HR [facility] Administration Methylprednisolone Sodium Succinate 60 mg 10/01/18 14:00 10/02/18 01:02 Solu-Medrol IV 60 mg Q6H [facility] Administration Montelukast Sodium 10 mg 10/01/18 22:00 10/01/18 22:20 Singulair PO 10 mg QHS [facility] Administration Ondansetron HCl 4 mg 09/29/18 11:06 09/30/18 19:08 Zofran IV 4 mg Q8H PRN Administration Nausea And Vomiting Sodium Chloride 10 ml 09/29/18 22:00 10/01/18 22:20 Sodium Chloride Flush Syringe 10 Ml IV 10 ml BID [facility] Administration Sodium Chloride 10 ml 09/29/18 11:06 Sodium Chloride Flush Syringe 10 Ml IV PRN PRN LINE FLUSH
[2018-10-02] MEDS: KEPPRA PO SCH ×2 (10:09→22:24)
[2018-10-02] MEDS: SODIUM CHLORIDE FLUSH SYRINGE 10 ML IV SCH ×2 (10:11→22:24)
[2018-10-02] MEDS: CLARITIN-D 24HR PO SCH (12:43)
[2018-10-02] MEDS: ZITHROMAX 500 MG in NACL 0.9% 250ML 250 ML IV SCH (15:43)
[2018-10-02] MEDS: SINGULAIR PO SCH (22:24)
[2018-10-03] MEDS: DUONEB *Not for PRN Use IH SCH ×3 (01:34→14:16)
[2018-10-03] MEDS: SOLU-Medrol IV SCH (06:09)
[2018-10-03] MEDS: PULMICORT IH SCH (07:19)
[2018-10-03] MEDS: KEPPRA PO SCH (09:26)
[2018-10-03] MEDS: SODIUM CHLORIDE FLUSH SYRINGE 10 ML IV SCH (12:42)
[2018-10-03] MEDS: CLARITIN-D 24HR PO SCH (12:42)
[2018-10-03 12:45] VITALS: BP 131/83
--- NOTE | 2018-10-03 14:13 | Progress Note ---
Assessment and Plan 43 y/o female with acute respiratory failure thought secondary to asthma exacerbation and amphetamine use that does not appear to be prescription. 1. IMS dropped steroids to q8 2. Continue BID pulmicort therapy. 3. Agree with scheduled duonebs 4. Per patient was on singulair. Will restart but currently does not have funding. Not sure if she will be able to afford at discharge. CM told me patient can get this drug for about 12 bucks per month 5. Needs counseling on drug abuse as this is likely worsening her underlying lung disease. Especially if she is inhaling or smoking this . Subjective Date of service: 10/03/18 Interval history: No acute events. Objective Vital Signs - 12hr 10/03/18 10/03/18 10/03/18 04:18 07:00 07:21 Temperature 98.6 F Pulse Rate 78 Pulse Rate [ From Monitor] Pulse Rate [ 90 Posterior Bilateral Throughout] Respiratory 18 Rate Respiratory 18 Rate [Posterior Bilateral Throughout] Blood Pressure 139/88 O2 Sat by Pulse 95 98 Oximetry 10/03/18 10/03/18 09:00 11:48 Temperature 98.6 F Pulse Rate 117 H Pulse Rate [ 121 H From Monitor] Pulse Rate [ Posterior Bilateral Throughout] Respiratory 18 Rate Respiratory Rate [Posterior Bilateral Throughout] Blood Pressure 131/83 O2 Sat by Pulse 96 95 Oximetry CBC and BMP: 10/01/18 04:40 10/01/18 04:40 ABG, PT/INR, D-dimer: PT/INR, D-dimer PT 13.3 Sec. (12.2-14.9) 09/29/18 07:18 INR 1.04 (0.87-1.13) 09/29/18 07:18 199.49 ng/mlDDU (0-234) 09/29/18 07:20 Abnormal lab findings: Abnormal Labs 09/29/18 09/29/18 09/29/18 01:32 07:18 07:18 WBC 12.8 H MCHC Eos % (Auto) 4.7 H Eos # 0.6 H Seg Neutrophils % 74.2 H Seg Neuts % (Manual) Lymphocytes % (Manual) Seg Neutrophils # 9.5 H Seg Neutrophils # Man Lymphocytes # (Manual) Potassium 3.0 L Creatinine 0.4 L Glucose 131 H Albumin 3.6 L 09/30/18 09/30/18 10/01/18 04:56 04:56 04:40 WBC 17.5 H 20.5 H MCHC 35 H Eos % (Auto) Eos # Seg Neutrophils % Seg Neuts % (Manual) 96.0 H Lymphocytes % (Manual) 3.0 L Seg Neutrophils # Seg Neutrophils # Man 16.8 H Lymphocytes # (Manual) 0.5 L Potassium Creatinine 0.4 L Glucose 200 H Albumin 10/01/18 04:40 WBC MCHC Eos % (Auto) Eos # Seg Neutrophils % Seg Neuts % (Manual) Lymphocytes % (Manual) Seg Neutrophils # Seg Neutrophils # Man Lymphocytes # (Manual) Potassium Creatinine 0.3 L Glucose 136 H Albumin
--- NOTE | 2018-10-03 15:45 | Discharge Summary ---
Providers - Providers Date of Admission: 09/29/18 09:36 Date of discharge: 10/03/18 Attending physician: MARK SCHUSTER 09/30/18 11:49 Consult to Physician [CONS] Routine Comment: Consulting Provider: JASBIR ROBLES Physician Instructions: Reason For Exam: asthma exacerbation Primary care physician: [facility] Hospitalization Condition: Stable Hospital course: 43-year-old female patient with past medical history of asthma since childhood, remote history of tobacco use she quit 2 months ago. Also associated history of SLE and seizure disorder was admitted through ER with worsening shortness of breath that has been ongoing for the last few days. The patient reports that he started initially with cough and nonproductive and proceeded to tightness in her chest which causes with wheezing. She denies any radiation of the chest discomfort which resulted 3/10 in intensity. She states that her shortness of b reath got rather worse prompted her call To call EMS. She denies any prior history of intubations but she's been admitted to the hospital before for asthma-induced condition. CXR: No acute pathology Discharge Diagnosis: --Acute exacerbation of bronchial Asthma ; nebulizers Oxygen, steroids, antibiotics, supportive care --Acute hypoxic Respiratory failure: secondary to Asthma exacerbation Oxygen titrate to O2 sats more than 90%, bronchodilators, tapering dose of steroids IV antibiotics and supportive care --History of Tobacco use disorder; smoking cessation advised Nicotine patch as needed --seizure disorder; seizure precautions, antiepileptic medications --History of SLE; stable --Hypokalemia; corrected --Substance abuse; patient advised to quit recreational drug use --Ongoing tobacco use; smoking cessation and preventive counseling done --DVT prophylaxis; Lovenox Disposition: DC- TO HOME OR SELFCARE Time spent for discharge: 32 min Core Measure Documentation - Palliative Care Palliative Care/ Comfort Measures: Not Applicable - Core Measures Any of the following diagnoses?: none Exam - Constitutional Vitals: Temp Pulse Resp BP Pulse Ox 98.6 F 117 H 18 131/83 95 10/03/18 11:48 10/03/18 11:48 10/03/18 11:48 10/03/18 11:48 10/03/18 11:48 General appearance: Present: no acute distress, well-nourished - EENT Eyes: Present: PERRL, EOM intact - Neck Neck: Present: supple, normal ROM - Respiratory Respiratory effort: normal Respiratory: bilateral: diminished, wheezing, negative: rales, rhonchi - Cardiovascular Rhythm: regular Heart Sounds: Present: S1 & S2 - Extremities Extremities: no ischemia, No edema - Abdominal General gastrointestinal: Present: soft, non-tender, non-distended, normal bowel sounds - Integumentary Integumentary: Present: clear, warm - Musculoskeletal Musculoskeletal: strength equal bilaterally - Psychiatric Psychiatric: appropriate mood/affect, cooperative - Neurologic Neurologic: CNII-XII intact, moves all extremities Plan Activity: no restrictions Diet: regular Special Instructions: smoking cessation Additional Instructions: Smoking cessation , nicotine patch as needed. Strongly advised to comply with medications,f/u visists and smoking cessation. If you have significant shortness of breath or chest pain,contact MD or go to ER Follow up with: REESE DUKESRED BAY MD ESHA [Primary Care Provider] - 3-5 Days JASBIR RBOLES MD [Staff Physician] - 7 Days Prescriptions: Fluticasone/Salmeterol [Advair Diskus 250-50 mcg] 1 puff IH BID #1 disk.w.dev Ipratropium/Albuter (Nf) [Combivent (Nf)] 2 puff IH QID #1 inha predniSONE [Deltasone] 10 mg PO DAILY #40 tablet guaiFENesin DM [Guaifenesin Dm Syrup] 10 ml PO Q4H PRN 10 Days oral.liqd PRN Reason: Cough Keppra 1,000 mg PO BID #60 ALBUTEROL Inhaler (OR & NICU) [ProAir HFA Inhaler] 2 puff IH QID PRN #1 inhalation PRN Reason: Shortness Of Breath Montelukast [Singulair] 10 mg PO QHS #30 tablet Azithromycin [Zithromax Z-JOHN] 0 mg PO DAILY #1 tab
== END 2018-10-03 17:15 | disposition home or self-care (01) | DRG 189 ==
LOC: ED 06:59 → 3A 09:36
PROVIDERS: ADMIT Internal Medicine; ATTEND Internal Medicine
DX: J96.01 Acute respiratory failure with hypoxia (principal); J44.1 Chronic obstructive pulmonary disease with (acute) exacerbation; J45.901 Unspecified asthma with (acute) exacerbation; E87.6 Hypokalemia; F15.10 Other stimulant abuse, uncomplicated; G40.909 Epilepsy, unspecified, not intractable, without status epilepticus; F17.210 Nicotine dependence, cigarettes, uncomplicated; M32.9 Systemic lupus erythematosus, unspecified; Z71.6 Tobacco abuse counseling; Z86.73 Personal history of transient ischemic attack (TIA), and cerebral infarction without residual deficits; Z88.5 Allergy status to narcotic agent; Z88.0 Allergy status to penicillin; Z88.8 Allergy status to other drugs, medicaments and biological substances; Z88.6 Allergy status to analgesic agent; Z91.040 Latex allergy status; Z71.51 Drug abuse counseling and surveillance of drug abuser
CPT/HCPCS: 36415; 71045; 80048; 80076; 80307; 82550; 82553; 83880; 84484; 85007; 85025; 85027; 85379; 85610; 85730; 87116; 87205; 93005; 93010; 94640; 94644; 94760; 96365; 96375; 99406; G0378; J0456; J1940; J2270; J2405; J2930; J3475; J7030; J7050

== ENCOUNTER 2019-03-17 07:35 | Outpatient (CLI) | payer OTHER ==
--- NOTE | 2019-03-17 09:16 | Cat Scan Report ---
CT BRAIN: 03/17/2019 INDICATION / CLINICAL INFORMATION: ABNORMAL SEIZURE ACTIVITY. COMPARISON: None available. FINDINGS: BRAIN/INTRACRANIAL STRUCTURES: Unenhanced CT images of the brain demonstrate no evidence of acute int racranial abnormality. Ventricles and sulci are slightly prominent in size for a patient of this age, consistent with some u nderlying diffuse cerebral atrophy. There is no evidence of acute ischemic injury, hemorrhage, or mass. There are no abnormal extra-axial fluid collections. EXTRACRANIAL STRUCTURES: Unremarkable. IMPRESSION: No acute abnormality. Mild cerebral atrophy. All CT scans at this location are performed using dose reduction to ALARA by means of automated expos ure control. Signer Name: Domingo Hammond MD Signed: 03/17/2019 9:11 AM Workstation Name: [id number]
== END 2019-03-17 07:36 | disposition home or self-care (01) ==
LOC: CT 07:35
PROVIDERS: ATTEND Family Medicine
DX: G31.89 Other specified degenerative diseases of nervous system (principal)
CPT/HCPCS: 70450